=== PATIENT | male | born 1995 | race Caucasian/White ===

== ENCOUNTER 2016-11-11 17:13 | Emergency (ER) | payer OTHER ==
[~2016-11-11] VITALS: Ht 170.2 cm; Wt 85.0 kg
[2016-11-11 17:15] VITALS: BP 137/93; TEMP 98.4
[2016-11-11] MEDS ORDERED: PROAIR HFA0.09 MG/AC IH (17:19)
[2016-11-11] MEDS ORDERED: ZYRTEC 10MG10 MG PO (17:19)
[2016-11-11] MEDS ORDERED: NORCO 325 MG-51 TAB PO (18:41)
[2016-11-11 18:53] VITALS: PULSE 104
== END 2016-11-11 18:54 | disposition home or self-care (01) ==
LOC: COL.ER 17:13
DX: S62.356A Nondisplaced fracture of shaft of fifth metacarpal bone, right hand, initial encounter for closed fracture (principal); W55.22XA Struck by cow, initial encounter; Y92.71 Barn as the place of occurrence of the external cause

== ENCOUNTER → 2017-04-02 | Outpatient (CLI) | payer BC ==
[~2017-04-02] MED LIST: NORCO 325 MG-51 TAB PO; PROAIR HFA0.09 MG/AC IH; ZYRTEC 10MG10 MG PO
== END ==
LOC: ZCOL.LAB 16:16
DX: Z01.89 Encounter for other specified special examinations (principal)